=== PATIENT | male | born 1955 | race Caucasian/White ===

== ENCOUNTER 2017-07-10 07:18 | Emergency (ER) | payer BC ==
[2017-07-10 07:32] VITALS: BP 155/88
--- NOTE | 2017-07-10 07:51 | EDM.PDOC ---
ED HPI GENERAL MEDICAL PROBLEM - General Chief Complaint: Bite:Animal, Insect Stated Complaint: POSSIBLE SPIDER BITE ON RIGHT FOOT Time Seen by Provider: 07/10/17 07:27 Source of Information: Reports: Patient History Limitations: Reports: No Limitations - History of Present Illness INITIAL COMMENTS - FREE TEXT/NARRATIVE: History of present illness: []Patient has a 3 or 4 day history of a lesion on his right that is now black with surrounding redness. Concerned he has some kind of stinger in the wound does not recall if this is an insect bite or from wearing steel toe boots for 4 hours a few days ago. Patient denies any fevers chills or drainage from the wound. Last tetanus shot was 3 years ago and he denies being a diabetic. Review of systems: As per history of present illness and below otherwise all systems reviewed and negative. Past medical history: As per history of present illness and as reviewed below otherwise noncontributory. Surgical history: As per history of present illness and as reviewed below otherwise noncontributory. Social history: No reported history of drug or alcohol abuse. Family history: As per history of present illness and as reviewed below otherwise noncontributory. Physical exam: General: Well developed, well nourished in NAD HEENT: Atraumatic, normocephalic, pupils reactive, negative for conjunctival pallor or scleral icterus, mucous membranes moist, throat clear, neck supple, nontender, trachea midline. Lungs: Clear to auscultation, breath sounds equal bilaterally, chest nontender. Heart: S1S2, regular, negative for clicks, rubs, or JVD. Abdomen: Soft, nondistended, nontender. Negative for masses or hepatosplenomegaly. Negative for costovertebral tenderness. Pelvis: Stable nontender. Genitourinary: Deferred. Rectal: Deferred. Extremities: 1 cm eschar on the dorsal foot at the base of his great toe with 1 centimeter of erythema around the eschar there is no drainage, negative for cords or calf pain. Neurovascular unremarkable. Neuro: Awake, alert, oriented. Cranial nerves II through XII unremarkable. Cerebellum unremarkable. Motor and sensory unremarkable throughout. Exam nonfocal. Diagnostics: [] Therapeutics: [] Impression: []Skin ulceration right foot Plan: []Keflex, warm soaks, follow-up with podiatry as needed return if symptoms worsen or change Definitive disposition and diagnosis as appropriate pending reevaluation and review of above. Right Feet Pain Score (Numeric/FACES): 1 - Related Data Allergies Allergy/AdvReac Type Severity Reaction Status Date / Time codeine Allergy Intermediate Hives Verified 07/10/17 07:32 Home Meds: Home Meds Cephalexin [Keflex] 500 mg PO Q6HR #28 cap 07/10/17 [Rx] Past Medical History Oncologic (Cancer) History: Reports: Basal Cell Carcinoma, Other (See Below) Other Oncologic History: MOHS surgery - Infectious Disease History Infectious Disease History: Reports: Chicken Pox, Shingles - Past Surgical History Dermatological Surgical History: Reports: Other (See Below) Social & Family History - Tobacco Use Smoking Status *Q: Never Smoker Second Hand Smoke Exposure: No - Caffeine Use Caffeine Use: Reports: Coffee - Recreational Drug Use Recreational Drug Use: No ED ROS GENERAL - Review of Systems Review Of Systems: See Below (See history of present illness) ED EXAM, ANIMAL BITE - Physical Exam Exam: See Below (See history of present illness) Course - Vital Signs Last Recorded V/S: Last Vital Signs Temp 97.2 F 07/10/17 07:28 Pulse 72 07/10/17 07:28 Resp 12 07/10/17 07:28 BP 155/88 H 07/10/17 07:28 Pulse Ox 95 07/10/17 07:28 Departure - Departure Time of Disposition: 07:50 Disposition: Home, Self-Care 01 Condition: Good Clinical Impression: Ulcer of right foot Qualifiers: Non-pressure ulcer stage: limited to breakdown of skin Qualified Code(s): L97.511 - Non-pressure chronic ulcer of other part of right foot limited to breakdown of skin - Discharge Information Prescriptions: Cephalexin [Keflex] 500 mg PO Q6HR #28 cap Referrals: PCP,None [Primary Care Provider] - Additional Instructions: The following information is given to patients seen in the emergency department who are being discharged to home. This information is to outline your options for follow-up care. We provide all patients seen in our emergency department with a follow-up referral. The need for follow-up, as well as the timing and circumstances, are variable depending upon the specifics of your emergency department visit. If you don't have a primary care physician on staff, we will provide you with a referral. We always advise you to contact your personal physician following an emergency department visit to inform them of the circumstance of the visit and for follow-up with them and/or the need for any referrals to a consulting specialist. The emergency department will also refer you to a specialist when appropriate. This referral assures that you have the opportunity for follow-up care with a specialist. All of these measure are taken in an effort to provide you with optimal care, which includes your follow-up. Under all circumstances we always encourage you to contact your private physician who remains a resource for coordinating your care. When calling for follow-up care, please make the office aware that this follow-up is from your recent emergency room visit. If for any reason you are refused follow-up, please contact the [facility] at and asked to speak to the emergency department charge nurse. Fela as directed, warm soaks, follow-up with podiatry if needed return if symptoms change or worsen [facility] Dr Triana, DPM Podiatry [address] [place] [id number]
== END 2017-07-10 08:10 | disposition home or self-care (01) ==
LOC: MW.ED 07:18
DX: L97.511 Non-pressure chronic ulcer of other part of right foot limited to breakdown of skin (principal); Z88.5 Allergy status to narcotic agent
CPT/HCPCS: 99282; 99284